=== PATIENT | female | born 1995 | race African-American/Black ===

== ENCOUNTER → 2019-02-24 | Emergency (ER) | payer MEDICAID ==
[~2019-02-24] VITALS: Ht 165.1 cm; Wt 70.0 kg
[~2019-02-24] MED LIST: ALBU6.7H IH
[2019-02-24 16:57] VITALS: BP 110/52
== END | disposition left against medical advice (07) ==
LOC: ER 16:46
DX: Z53.21 Procedure and treatment not carried out due to patient leaving prior to being seen by health care provider (principal)
CPT/HCPCS: 99283

== ENCOUNTER 2025-11-01 22:38 | Emergency (ER) | payer MEDICAID, OTHER ==
[~2025-11-01] VITALS: Ht 165.1 cm; Wt 91.0 kg
[~2025-11-01 22:38] MED LIST changes: -ALBU6.7H IH; +ALBU6.7H15 IH
[2025-11-01 22:45] VITALS: TEMP 97.1; O2SAT 100
[2025-11-01] MEDS: SODIUM CHLORIDE 0.9% 1,000 ML IV ONE (23:32)
[2025-11-01] MEDS: ONDANSETRON HCL 4MG/2ML INJ IV ONE (23:32)
[2025-11-01] MEDS: CEFTRIAXONE 1GM/50ML 50 ML IV ONE (23:32)
[2025-11-01] MEDS: ACETAMINOPHEN 1000MG/100ML 100 ML IV ONE (23:32)
[2025-11-01 23:39] LABS: BASOPHILS % 0.6 % (0.0-2.0); EOSINOPHILS % 1.4 % (0.0-5.0); HEMATOCRIT. 32.6 % (36.0-48.0); HEMOGLOBIN. 10.9 g/dL (12.0-16.0); LYMPHOCYTES % 21.4 % (20.0-50.0); MEAN PLATELET VOLUME 8.0 fl (7.4-10.4); MONOCYTES % 9.3 % (2.0-8.0); NEUTROPHILS % 67.3 % (40.0-76.0); PLATELET 230 x1000/uL (130-400); RED BLOOD CELL COUNT 3.74 mill/uL (4.2-5.4); RED CELL DISTRIBUTION WIDTH 14.2 % (11.6-14.6)
[2025-11-01 23:53] LABS: CREATININE 0.6 mg/dL (0.6-1.0); ETHANOL BLOOD < 10 mg/dL (<10); UREA NITROGEN BLOOD 5 mg/dL (9-23)
[2025-11-01 23:54] LABS: ASPARTATE AMINOTRANSFERASE 10 IU/L (<34); PROTEIN TOTAL 6.5 g/dL (6.0-8.3)
[2025-11-01 23:55] LABS: BILIRUBIN DIRECT < 0.1 mg/dL (<=3.0); BILIRUBIN TOTAL 0.3 mg/dL (0.1-1.0); INR 1.0
[2025-11-02] MEDS ORDERED: ONDA-239 PO (01:04)
[2025-11-02] MEDS ORDERED: CLIN-194 MT (01:04)
[2025-11-02] MEDS ORDERED: ACET-2708 MT (01:04)
[2025-11-02] MEDS ORDERED: CHLO473M2 MT (01:04)
[2025-11-02] MEDS: CLINDAMYCIN HCL 150MG CAPSULE PO SCH (01:13)
[2025-11-02 01:19] VITALS: BP 105/66; PULSE 76; RESP 12; O2SAT 98
[2025-11-02 01:31] LABS: CLARITY URINE CLEAR (CLEAR); COLOR URINE YELLOW (YELLOW); GLUCOSE URINE NEGATIVE (NEGATIVE); KETONES URINE NEGATIVE (NEGATIVE); LEUKOCYTE ESTERASE URINE NEGATIVE (NEGATIVE); NITRITE URINE NEGATIVE (NEGATIVE); OCCULT BLOOD URINE NEGATIVE (NEGATIVE); PH URINE 6.0 (4.5-8.0); PROTEIN URINE NEGATIVE (NEGATIVE); SPECIFIC GRAVITY URINE 1.014 (1.005-1.030); UROBILINOGEN URINE 0.2 E.U./dL (0.2-1.0)
[2025-11-02 01:57] LABS: *AMPHETAMINES SCREEN URINE NEGATIVE (NEGATIVE); *BARBITURATES SCREEN URINE NEGATIVE (NEGATIVE); *BENZODIAZEPINES SCREEN URINE NEGATIVE (NEGATIVE); *COCAINE SCREEN URINE NEGATIVE (NEGATIVE)
[2025-11-02 01:58] LABS: CANNABINOID URINE SCREEN PRESUMPTIVE POSITIVE (NEGATIVE); ECSTASY MDMA SCREEN URINE NEGATIVE (NEGATIVE); METHADONE URINE SCREEN NEGATIVE (NEGATIVE); OPIATES URINE SCREEN NEGATIVE (NEGATIVE); PHENCYCLIDINE URINE SCREEN NEGATIVE (NEGATIVE)
== END 2025-11-02 01:52 | disposition home or self-care (01) ==
LOC: ER 22:38 → CMPBEDREQ 11-02 07:33
DX: O26.892 Other specified pregnancy related conditions, second trimester (principal); K04.7 Periapical abscess without sinus; O99.512 Diseases of the respiratory system complicating pregnancy, second trimester; J45.909 Unspecified asthma, uncomplicated; Z3A.16 16 weeks gestation of pregnancy; Z79.899 Other long term (current) drug therapy
CPT/HCPCS: 80076; 80048; 80320; 83690; 83735; 85025; 85610; 36415; 96368; 96365; 96366; 96375; 99285; 80305; 81003; 76805; J0696; J2405; J7030; G0480; J0131